=== PATIENT | male | born 1970 | race Caucasian/White ===

== ENCOUNTER 2017-05-22 14:32 | Emergency (ER) | payer BC ==
[~2017-05-22] VITALS: Ht 185.4 cm; Wt 135.0 kg
[2017-05-22] MEDS ORDERED: NEBI20TA2 PO (14:43)
[2017-05-22] MEDS ORDERED: ASPIRIN 81 MG TABLET CHEW ONE (14:46)
[2017-05-22] MEDS ORDERED: SODIUM CHLORIDE FLUSH 10ML SYR IVF ONE (15:00)
[2017-05-22] MEDS ORDERED: ASPIRIN 81 MG TABLET CHEW PO ONE (15:00)
[2017-05-22 15:10] LABS: BLOOD UREA NITROGEN 13 mg/dL (7-18)
[2017-05-22 17:46] VITALS: BP 126/81
[2017-05-22] MEDS ORDERED: OMNIPAQUE 350 MG/ML, 100ML BOTTLE ONE (19:39)
== END 2017-05-22 17:48 | disposition home or self-care (01) ==
LOC: ED 15:53
DX: F41.1 Generalized anxiety disorder (principal); R06.4 Hyperventilation; I10 Essential (primary) hypertension
CPT/HCPCS: 36415; 71020; 71275; 80048; 82040; 83880; 84436; 84443; 84484; 85025; 85610; 85730; 93005; 99285; Q9967